=== PATIENT | male | born 1990 | race Caucasian/White ===

== ENCOUNTER 2016-11-30 11:04 | Emergency (ER) | payer SELFPAY ==
[2016-11-30] MEDS ORDERED: Tetan/Diph/Pertus SYR(Tdap)* 0.5 ML SYR(BOOSTRIX) use SYR IM ONE (11:31)
[2016-11-30] MEDS ORDERED: Ciprofloxacin TAB* 500 MG PO ONE (11:52)
--- NOTE | 2016-11-30 14:31 | UC ---
Lower Extremity/Ankle HPI - HPI Summary HPI Summary: STEPPED ON NAIL AT 1030AM TODAY. LAST TETANUS IN MID . NAIL WENT THROUGH PLASTIC SOLE OF SHOE. SMALL PUNCTURE OF LEFT (PLANTAR ASPECT OF) LEFT FOOT. MILD DISCOMFORT WITH AMBULATION. - History of Current Complaint Chief Complaint: ESPERANZAkin Stated Complaint: PUNCTURE WOUND TO FOOT Time Seen by Provider: 11/30/16 11:23 Hx Obtained From: Patient Onset/Duration: Sudden Onset, Lasting Hours, Still Present Severity Initially: Mild Severity Currently: Mild Pain Intensity: 3 Pain Scale Used: 0-10 Numeric Aggravating Factor(s): Standing, Ambulation Alleviating Factor(s): Rest, Elevation Able to Bear Weight: Yes - Risk Factors Gout Risk Factors: Negative DVT Risk Factors: Negative Septic Arthritis Risk Factor: Negative - Allergies/Home Medications Allergies/Adverse Reactions: Allergies Allergy/AdvReac Type Severity Reaction Status Date / Time Penicillins Allergy Rash Verified 11/30/16 11:25 Home Medications: Home Medications NK [No Home Medications Reported] 11/30/16 [History Confirmed 11/30/16] PMH/Surg Hx/FS Hx/Imm Hx Previously Healthy: Yes - Surgical History Surgical History: None - Family History Known Family History: Negative: Diabetes - Social History Occupation: Employed Full-time Lives: With Family Alcohol Use: Occasionally Substance Use Type: None Smoking Status (MU): Never Smoked Tobacco Review of Systems Constitutional: Negative Skin: Other - PUNCTURE WOUND LEFT FOOT Eyes: Negative ENT: Negative Respiratory: Negative Cardiovascular: Negative Gastrointestinal: Negative Genitourinary: Negative Motor: Negative Neurovascular: Negative Musculoskeletal: Myalgia - PUNCTURE WOUND LEFT FOOT Neurological: Negative Psychological: Negative All Other Systems Reviewed And Are Negative: Yes Physical Exam Triage Information Reviewed: Yes Appearance: Well-Appearing, No Pain Distress, Well-Nourished Vital Signs: Initial Vital Signs Temp 99.1 F 11/30/16 11:27 Pulse 58 11/30/16 11:27 Resp 18 11/30/16 11:27 BP 119/69 11/30/16 11:27 Pulse Ox 99 11/30/16 11:27 Vital Signs Reviewed: Yes Eye Exam: Normal ENT Exam: Normal ENT: Positive: Normal ENT inspection, Hearing grossly normal, Pharynx normal, TMs normal Dental Exam: Normal Neck exam: Normal Neck: Positive: Supple, Nontender, No Lymphadenopathy Respiratory Exam: Normal Respiratory: Positive: Chest non-tender, Lungs clear, Normal breath sounds, No respiratory distress Cardiovascular Exam: Normal Cardiovascular: Positive: RRR, No Murmur, Pulses Normal, Brisk Capillary Refill Abdominal Exam: Normal Musculoskeletal Exam: Normal Musculoskeletal: Positive: Strength Intact, ROM Intact, No Edema Neurological Exam: Normal Psychological Exam: Normal Psychological: Positive: Normal Response To Family Skin Exam: Normal Lower Extremity Course/Dx - Differential Dx/Diagnosis Differential Diagnosis/HQI/PQRI: Fracture (Closed), Sprain, Strain, Other - PSEUDOMONAS Provider Diagnoses: PUNCTURE WOUND LEFT FOOT. TETANUS PROPHYLAXIS Discharge - Discharge Plan Condition: Stable Disposition: HOME Patient Education Materials: Puncture Wound (ED) Forms: *Work Release Referrals: [facility] [place] PHYSICIAN REFERRAL [Outside] Saeid Dickson MD [Medical Doctor] -
== END 2016-11-30 12:18 | disposition home or self-care (01) ==
LOC: UCEAST 11:04
DX: S91.332A Puncture wound without foreign body, left foot, initial encounter (principal); Z23 Encounter for immunization; Z88.3 Allergy status to other anti-infective agents
CPT/HCPCS: 90471; 90715; 99202; A9270-GY; G0463

== ENCOUNTER 2018-02-11 17:14 | Emergency (ER) | payer BC ==
--- NOTE | 2018-02-11 17:20 | UC ---
Complaint Male HPI - HPI Summary HPI Summary: 27 yo male presents with rectal pain and bright red blood on paper for the last 2 days. He tells me that he has issues with small and hard BMs in the past. 2 days ago he was having a bowel movement and passed a small hard stool. Had some pain after. Doesn't think he was straining that hard. When he wiped he noticed some spotting of bright red blood on the tissue. Yesterday this happened again, but the pain increased. Today has been painful all day. Has not tried anything OTC. Denies abdominal pain, n/v/d, or dysuria. - History of Current Complaint Hx Obtained From: Patient Onset/Duration: Sudden Onset Timing: Constant Severity Initially: Moderate Severity Currently: Moderate Pain Intensity: 6 Pain Scale Used: 0-10 Numeric Aggravating Factor(s): Straining <Dheeraj Reed - Last Filed: 02/11/18 18:02> <Juan Moncada - Last Filed: 02/11/18 18:14> - History of Current Complaint Stated Complaint: RECTAL DISCOMFORT Time Seen by Provider: 02/11/18 17:20 - Allergies/Home Medications Allergies/Adverse Reactions: Allergies Allergy/AdvReac Type Severity Reaction Status Date / Time Penicillins Allergy Rash Verified 02/11/18 17:21 PMH/Surg Hx/FS Hx/Imm Hx - Additional Past Medical History Additional PMH: None Previously Healthy: Yes - Surgical History Surgical History: None - Family History Known Family History: Negative: Diabetes - Social History Occupation: Employed Full-time Lives: With Family Alcohol Use: Occasionally Substance Use Type: None Smoking Status (MU): Never Smoked Tobacco <Dheeraj Reed - Last Filed: 02/11/18 18:02> Review of Systems Constitutional: Negative Skin: Negative Respiratory: Negative Cardiovascular: Negative Gastrointestinal: Negative Genitourinary: Other - Rectal pain Neurovascular: Negative Neurological: Negative Psychological: Negative All Other Systems Reviewed And Are Negative: Yes <Dheeraj Reed - Last Filed: 02/11/18 18:02> Physical Exam - Summary Physical Exam Summary: GENERAL: NAD. WDWN. No pain distress. SKIN: No rashes, sores, lesions, or open wounds. NECK: Supple. Nontender. No lymphadenopathy. CHEST: CTAB. No r/r/w. No accessory muscle use. Breathing comfortably and in no distress. CV: RRR. Without m/r/g. Pulses intact. Brisk cap refill. ABDOMEN: Soft. NTTP. No distention or guarding. No organomegaly. No CVA tenderness. Bowel sounds present NEURO: Alert. CN II-XII grossly intact. PSYCH: Age appropriate behavior. RECTAL: 3 moderate sized external hemorrhoids at 10, 8, and 7 o'clock. Very TTP. No active bleeding or fissures appreciated. KURT with normal sphincter tone. No stool in vault. Triage Information Reviewed: Yes Vital Signs: Vital Signs: Temp Pulse Resp BP Pulse Ox 98.2 F 56 18 124/76 97 02/11/18 17:21 02/11/18 17:21 02/11/18 17:21 02/11/18 17:21 02/11/18 17:21 <Dheeraj Reed - Last Filed: 02/11/18 18:02> Vital Signs: Initial Vital Signs Temp 98.2 F 02/11/18 17:21 Pulse 56 02/11/18 17:21 Resp 18 02/11/18 17:21 BP 124/76 02/11/18 17:21 Pulse Ox 97 02/11/18 17:21 <Juan Moncada - Last Filed: 02/11/18 18:14> Complaint Male Course/Dx - Course Course Of Treatment: External hemorrhoid. Rx for anusol and f/u with gen surg if symptoms persist. - Differential Dx/Diagnosis Provider Diagnoses: External hemorrhoid <Dheeraj Reed Last Filed: 02/11/18 18:02> Discharge - Sign-Out/Discharge Documenting (check all that apply): Discharge/Admit/Transfer - Billing Disposition and Condition Condition: STABLE Disposition: Home <Dheeraj Reed Last Filed: 02/11/18 18:02> - Billing Disposition and Condition Condition: STABLE Disposition: Home <Juan Moncada - Last Filed: 02/11/18 18:14> - Discharge Plan Condition: Stable Disposition: HOME Prescriptions: Hydrocortisone SUPP* [Anusol Hc Supp*] 25 mg [place] BID #20 supp Patient Education Materials: Hemorrhoids (ED) Referrals: No Primary Care Phys,NOPCP [Primary Care Provider] - Kenton Hogan MD [Medical Doctor] - If Needed Additional Instructions: If you develop a fever, shortness of breath, chest pain, new or worsening symptoms - please call your PCP or go to the ED. 1) If your symptoms do not improve or resolve, please call Dr. Hogan at the number below to schedule an appointment for further treatment. 2) May try once a daily Miralax to relieve hard stools. Per institutional requirements, I have reviewed the chart, however, I was not consulted specifically or made aware of this patient by the above midlevel provider. I did not personally evaluate, interact with , or disposition this patient.
[2018-02-11 17:26] VITALS: BP 124/76
== END 2018-02-11 18:00 | disposition home or self-care (01) ==
LOC: UCEAST 17:14
DX: K64.4 Residual hemorrhoidal skin tags (principal); Z88.0 Allergy status to penicillin; K62.5 Hemorrhage of anus and rectum
CPT/HCPCS: 99212; G0463